=== PATIENT | male | born 1975 | race Caucasian/White ===

== ENCOUNTER 2019-06-17 12:07 | Inpatient (IN) | payer OTHER ==
[~2019-06-17] VITALS: Ht 177.8 cm; Wt 50.8 kg
[~2019-06-17 12:07] MED LIST: PANT40TA2 PO; SUCR1ORA6 PO
--- NOTE | 2019-06-17 12:30 | NUR ---
REQUIREMENTS ENGINEER NOTES 43 YEARS OLD MALE CAME A DIRECT ADMISSION FROM [facility]. HE HAS BEEN EXPERIENCING R ABDOMINAL PAIN FOR THE PAST 2 DAYS. HE DENIES ANY FAMILY HX. OR ALLERGIES. HE IS ON RA. BP: 152/86 HR: 63. HE IS AOX4, DENIES NEURO AND CARDIAC HX. ABDOMEN IS SOFT, HYPOACTIVE BOWEL SOUNDS ON ALL FOUR QUADRANTS, NO BM FOR THE PAST 5 DAYS. SKIN IS INTACT, NO WOUNDS. HE HAS A 20G ON RFA THAT WAS STARTED AT [facility], INFUSING D5 1/2 NS AT 100ML/HR. HE DENIED MRSA SWAB AND NG TUBE INSERTION. DR. HAYWOOD HAS BEEN NOTIFIED OF PATIENTS ARRIVAL. WILL CONTINUE TO MONITOR FOR ANY CHANGES
--- NOTE | 2019-06-17 12:38 | NUR ---
NOTIFIED EPIC DR ONEIL THAT DIRECT ADMIT ARRIVED TO UNIT ROOM 103. ORDERS OBTAINED START PATIENT ON D5 1/2 NS @ 100 ML/HR . REMAIN NPO PLACE NGT TO LOW INTERMITENT SUCTION. DR GRANADO TO CONTACTED BY DR ONEIL
--- NOTE | 2019-06-17 12:58 | NUR ---
PT CAME DIRECT ADMIT FROM [facility]. REFUSING TO HAVE IV PLACED AND REFUSING NGT ASKING FOR PAIN MEDS ONLY
[2019-06-17] MEDS ORDERED: IV D5/0.45 NACL 1,000 ML IV PRN (13:00)
[2019-06-17] MEDS ORDERED: ONDANSETRON HCL/PF 4 MG/2 ML VIAL IVP PRN (15:30)
[2019-06-17] MEDS ORDERED: Z GUARD REMEDY 2 OZ OINT TP PRN (15:30)
--- NOTE | 2019-06-17 15:50 | NUR ---
NEW ORDERS OBTAINED FROM DR ONEIL . PATIENT STILL REFUSING NG TUBE.
[2019-06-17 16:00] VITALS: BP 86/50
[2019-06-17] MEDS: IV 1/2NS 1000 ML 1,000 ML IV PRN (16:04)
[2019-06-17] MEDS: FAMOTIDINE/PF INJ 20 MG/2 ML VIAL IV SCH (16:58)
[2019-06-17] MEDS: ACETAMINOPHEN 325 MG TABLET PO PRN ×2 (16:58→17:05)
--- NOTE | 2019-06-17 17:14 | NUR ---
RN NOTES PATIENT COMPLAINED OF PAIN, 9/10 IN ABDOMEN. HE WAS OFFERED TYLENOL 650 MG, REFUSED. WILL CONTINUE TO MONITOR
[2019-06-17 17:16] LABS: BASOPHILS # (AUTO) 0.1 /CMM (0.0-0.2); BASOPHILS % (AUTO) 1.2 % (0.0-2.0); EOSINOPHILS % (AUTO) 2.2 % (0.0-6.0); HEMATOCRIT 35 % (39-51); HEMOGLOBIN 12.3 g/dL (13.5-17.5); LYMPHOCYTES # (AUTO) 1.6 /CMM (0.8-4.8); LYMPHOCYTES % (AUTO) 30.4 % (20.0-44.0); MEAN CORPUSCULAR HGB CONC 35 g/dl (31.0-36.0); MEAN CORPUSCULAR VOLUME 93 fL (80-96); MONOCYTES # (AUTO) 0.5 /CMM (0.1-1.30); MONOCYTES % (AUTO) 9.6 % (2.0-12.0); NEUTROPHILS % (AUTO) 56.6 % (43.0-81.0); PLATELET COUNT (AUTO) 275 /CMM (150-450); WHITE BLOOD COUNT (AUTO) 5.4 K/uL (4.3-11.0)
[2019-06-17 17:29] LABS: ALBUMIN 2.8 g/dL (3.4-5.0); BILIRUBIN,TOTAL 0.4 mg/dL (0.2-1.0); CALCIUM, SERUM 8.3 mg/dL (8.5-10.1); CREATININE 0.8 mg/dL (0.6-1.3); POTASSIUM 3.9 mmol/L (3.5-5.1); TOTAL PROTEIN, SERUM 5.9 g/dL (6.4-8.2)
--- NOTE | 2019-06-17 19:03 | NUR ---
RN CLOSING NOTES PATIENT IS RESTING BED. HE WAS BROUGHT IN TODAY FROM [facility]. HE IS AOX4 AND ON RA. HE IS NPO. BOWEL SOUNDS ARE HYPOACTIVE ON ALL FOUR QUADRANTS. HE HAS A 20G ON RFA THAT WAS STARTED AT [facility], RUNNING 1/2 NS AT 125 ML/HR. HE REFUSED THE INSERTION OF NG TUBE. HE REPORTED PAIN OF 9/10 IN THE ABDOMEN BUT REFUSED 650 MG TYLENOL. SAFETY MEASURES HAVE BEEN IMPLEMENTED, CALL LIGHT WITHIN REACH, SIDE RAILS UP X2, BED IN LOWEST AND LOCKED POSITION. PATIENT WILL BE ENDORSED TO NIGHTSHIFT NURSE.
--- NOTE | 2019-06-17 19:20 | NUR ---
PATIENT HAS BEEN ENDORSED BY THE NIGHTSWIFT NURSE
[2019-06-17 20:00] VITALS: BP 92/59
[2019-06-18] MEDS: IV 1/2NS 1000 ML 1,000 ML IV PRN ×3 (00:13→22:02)
[2019-06-18 04:00] VITALS: BP 101/60
[2019-06-18 06:16] LABS: ALBUMIN 3.1 g/dL (3.4-5.0); BILIRUBIN,TOTAL 0.6 mg/dL (0.2-1.0); CALCIUM, SERUM 8.8 mg/dL (8.5-10.1); CREATININE 0.8 mg/dL (0.6-1.3); MAGNESIUM 1.9 mg/dL (1.8-2.4); POTASSIUM 4.2 mmol/L (3.5-5.1); TOTAL PROTEIN, SERUM 6.4 g/dL (6.4-8.2)
[2019-06-18 06:31] LABS: BASOPHILS % (AUTO) 0.7 % (0.0-2.0); EOSINOPHILS % (AUTO) 1.7 % (0.0-6.0); HEMATOCRIT 38 % (39-51); HEMOGLOBIN 13.3 g/dL (13.5-17.5); LYMPHOCYTES # (AUTO) 1.9 /CMM (0.8-4.8); LYMPHOCYTES % (AUTO) 32.9 % (20.0-44.0); MEAN CORPUSCULAR HGB CONC 35 g/dl (31.0-36.0); MEAN CORPUSCULAR VOLUME 94 fL (80-96); MONOCYTES # (AUTO) 0.5 /CMM (0.1-1.30); MONOCYTES % (AUTO) 8.8 % (2.0-12.0); NEUTROPHILS # (AUTO) 3.2 /CMM (1.8-8.9); NEUTROPHILS % (AUTO) 55.9 % (43.0-81.0); PLATELET COUNT (AUTO) 278 /CMM (150-450); RED BLOOD CELL COUNT(AUTO) 4.08 MIL/uL (4.5-6.0); WHITE BLOOD COUNT (AUTO) 5.7 K/uL (4.3-11.0)
--- NOTE | 2019-06-18 07:15 | NUR ---
RN OPENING NOTES REPORT RECEIVED FROM AUTOMATIC PINSETTER MECHANIC RN. PT IS ASLEEP AT PRESENT MOMENT WITH EQUAL CHEST RISE AND FALL. NO OBVIOUS SIGNS OF PAIN NOTED AT THIS TIME WILL CONTINUE TO MONITOR. BED IS LOCKED AND IN LOWEST POSITION WITH CALL LIGHT IN REACH.
[2019-06-18 08:00] VITALS: BP 107/69
[2019-06-18] MEDS ORDERED: DIATR MEGLU/DIATRIZOATE SODIUM 120 ML BOTTLE (GASTROGRAPHIN) ONE ×2 (08:42→08:46)
[2019-06-18] MEDS: FAMOTIDINE/PF INJ 20 MG/2 ML VIAL IV SCH ×2 (09:00→16:59)
[2019-06-18] MEDS: MORPHINE SULFATE INJ 2 MG/ML DISP.SYRIN IV PRN ×4 (09:04→20:57)
--- NOTE | 2019-06-18 14:00 | NUR ---
DR. GRANADO MET WITH PATIENT STATED HE REVIEWED PATIENT'S PROCEDURE AND STATED TO START PATIENT ON CLEAR LIQUIDS AND ADVANCE TOLERATED. SBO HAS BEEN RULED OUT.
[2019-06-18 16:00] VITALS: BP 107/69
[2019-06-18 18:00] VITALS: BP 107/67
--- NOTE | 2019-06-18 18:56 | NUR ---
RN CLOSING NOTES PT TOLERATING FEEDING. NO SIGNIFICANT CHANGES DURING THE SHIFT WILL ENDORSE CONTINUITY OF CARE TO [employer]PERATORS SUPERVISOR RN.
--- NOTE | 2019-06-18 19:06 | NUR ---
MS RN RECEIVE PT IN BED A/O X 3, STABLE, RESPIRATIONS EVEN AND UNLABORED, SAFETY MEASURES IN PLACE. WILL CONTINUE TO MONITOR.
[2019-06-18 20:00] VITALS: BP 103/66
[2019-06-19] MEDS: MORPHINE SULFATE INJ 2 MG/ML DISP.SYRIN IV PRN (01:11)
[2019-06-19 04:00] VITALS: BP 110/58
--- NOTE | 2019-06-19 06:11 | NUR ---
MS RN PT SLEPT WELL THROUGHOUT THE NIGHT. NOT IN RESPIRATORY DISTRESS. PAIN MEDICATED WITH PRN PAIN MEDICATION. STABLE. KEPT CLEAN AND DRY AND COMFORTABLE. NEEDS ATTENDED AND ANTICIPATED. NURSING CARE RENDERED, SAFETY MEASURES AT ALL TIMES. ENDORSE TO THE NEXT SHIFT.
[2019-06-19] MEDS: IV 1/2NS 1000 ML 1,000 ML IV PRN (06:23)
[2019-06-19 08:00] VITALS: BP 100/58
[2019-06-19] MEDS: FAMOTIDINE/PF INJ 20 MG/2 ML VIAL IV SCH (09:00)
--- NOTE | 2019-06-19 14:15 | NUR ---
RN D/C NOTE RECEIVED D/C ORDERS TO HOME. PATIENT TOLERATED BREAKFAST AND LUNCH. NO STOMACH PAIN, NAUSEA OR VOMITING NOTED. PATIENT REPORTS PASSING GAS, BOWEL SOUNDS ACTIVE. IV REMOVED, CATHETER INTACT, NO BLEEDING NOTED. NO WOUND PICTURES TO BE TAKEN. HOMELESS WAIVER SIGNED, TAP CARD PROVIDED FOR TRANSPORTATION TO LOCATION OF CHOICE. BELONGINGS CHECKLIST SIGNED. EDUCATION FOR IMPORTANCE OF FOLLOW UP PROVIDED. PATIENT AMBULATED OUT OF UNIT @[id number]
== END 2019-06-19 14:20 | disposition home or self-care (01) | DRG 247 ==
LOC: MEDSG1 12:07
PROVIDERS: ADMIT Internal Medicine; ATTEND Internal Medicine
DX: K56.609 Unspecified intestinal obstruction, unspecified as to partial versus complete obstruction (principal); F11.20 Opioid dependence, uncomplicated; F17.200 Nicotine dependence, unspecified, uncomplicated; Z87.11 Personal history of peptic ulcer disease
CPT/HCPCS: 36415; 74018; 74250-TC; 80053-TC; 80061-TC; 83735-TC; 84100-TC; 85025-TC; 87081-TC; A6403; G0378; J2270; J3490; Q9963

== ENCOUNTER 2019-06-25 09:18 | Emergency (ER) | payer OTHER ==
[~2019-06-25] VITALS: Ht 167.6 cm; Wt 50.3 kg
--- NOTE | 2019-06-25 10:16 | NUR ---
in er bed 12, hooked to monitor, tucked in blabket, easily arousable by verbal stimuli. will continue to monitor.
[2019-06-25 10:17] LABS: BASOPHILS % (AUTO) 0.6 % (0.0-2.0); EOSINOPHILS % (AUTO) 1.2 % (0.0-6.0); HEMATOCRIT 43 % (39-51); HEMOGLOBIN 14.7 g/dL (13.5-17.5); LYMPHOCYTES # (AUTO) 1.7 /CMM (0.8-4.8); LYMPHOCYTES % (AUTO) 21.9 % (20.0-44.0); MEAN CORPUSCULAR HGB CONC 34 g/dl (31.0-36.0); MEAN CORPUSCULAR VOLUME 93 fL (80-96); MONOCYTES # (AUTO) 0.6 /CMM (0.1-1.30); MONOCYTES % (AUTO) 7.9 % (2.0-12.0); NEUTROPHILS # (AUTO) 5.4 /CMM (1.8-8.9); NEUTROPHILS % (AUTO) 68.4 % (43.0-81.0); PLATELET COUNT (AUTO) 333 /CMM (150-450)
[2019-06-25 10:25] LABS: CALCIUM, SERUM 9.3 mg/dL (8.5-10.1); POTASSIUM 3.5 mmol/L (3.5-5.1)
--- NOTE | 2019-06-25 12:26 | NUR ---
Patient given written and verbal discharge instructions. Patient verbalizes understanding of instructions. Patient is ambulatory with steady gait. Refuses offer of care home placement. Patient given list of available shelters in surrounding area. Patient discharged in proper clothing, all belongings returned, nameband removed.
[2019-06-25 12:31] VITALS: BP 110/72
== END 2019-06-25 12:34 | disposition home or self-care (01) ==
LOC: ER 09:21
DX: K64.9 Unspecified hemorrhoids (principal)
CPT/HCPCS: 36415; 74021; 80048-TC; 83690-TC; 85025-TC

== ENCOUNTER 2019-12-02 18:25 | Emergency (ER) | payer OTHER ==
[~2019-12-02] VITALS: Ht 167.6 cm; Wt 56.2 kg
[2019-12-02] MEDS ORDERED: ONDANSETRON HCL/PF 4 MG/2 ML VIAL IVP ONE (19:00)
[2019-12-02] MEDS ORDERED: MORPHINE SULFATE INJ 2 MG/ML DISP.SYRIN IV ONE ×2 (19:00→22:30)
[2019-12-02] MEDS ORDERED: IV NS 0.9% 1,000 ML BAG IV ONE (19:00)
[2019-12-02] MEDS ORDERED: PANTOPRAZOLE 40 MG VIAL IV ONE (19:00)
[2019-12-02] MEDS ORDERED: MORPHINE SULFATE INJ 4 MG/ML DISP.SYRIN ONE ×2 (19:04→22:38)
[2019-12-02] MEDS ORDERED: ONDANSETRON HCL/PF 4 MG/2 ML VIAL ONE (19:05)
[2019-12-02] MEDS ORDERED: PANTOPRAZOLE 40 MG VIAL ONE (19:05)
[2019-12-02 19:15] LABS: BASOPHILS # (AUTO) 0.1 /CMM (0.0-0.2); BASOPHILS % (AUTO) 0.5 % (0.0-2.0); EOSINOPHILS % (AUTO) 0.2 % (0.0-6.0); HEMATOCRIT 51 % (39-51); HEMOGLOBIN 17.1 g/dL (13.5-17.5); LYMPHOCYTES # (AUTO) 1.4 /CMM (0.8-4.8); LYMPHOCYTES % (AUTO) 11.2 % (20.0-44.0); MEAN CORPUSCULAR HGB CONC 34 g/dl (31.0-36.0); MEAN CORPUSCULAR VOLUME 93 fL (80-96); MONOCYTES # (AUTO) 0.9 /CMM (0.1-1.30); NEUTROPHILS # (AUTO) 10.4 /CMM (1.8-8.9); NEUTROPHILS % (AUTO) 81.1 % (43.0-81.0); PLATELET COUNT (AUTO) 210 /CMM (150-450); RED BLOOD CELL COUNT(AUTO) 5.46 MIL/uL (4.5-6.0); WHITE BLOOD COUNT (AUTO) 12.8 K/uL (4.3-11.0)
[2019-12-02 19:24] LABS: CALCIUM, SERUM 9.7 mg/dL (8.5-10.1); CREATININE 0.8 mg/dL (0.6-1.3); POTASSIUM 3.5 mmol/L (3.5-5.1)
[2019-12-02 19:30] LABS: BILIRUBIN,DIRECT 0.1 mg/dL (0.0-0.2); BILIRUBIN,TOTAL 0.5 mg/dL (0.2-1.0); TOTAL PROTEIN, SERUM 8.1 g/dL (6.4-8.2)
--- NOTE | 2019-12-02 19:42 | NUR ---
PT WALKED INTO EMERGENCY ROOM FOR ABDOMINAL DISCONFORT. LABS DRAWN PIV PLACED MEDICATIONS AND FLUID GIVEN WILL CONTINUE TO MONITOR
[2019-12-02] MEDS ORDERED: IOHEXOL-300 100 ML VIAL IV ONE ×2 (19:58→21:02)
[2019-12-02] MEDS ORDERED: IV NS 0.9% 250 ML IV ONE ×2 (19:58→21:03)
[2019-12-02] MEDS ORDERED: CT SWABBABLE VALVE TRANS SET 1 EA INFUS.SET MC ONE ×2 (19:58→21:03)
--- NOTE | 2019-12-03 00:51 | NUR ---
[facility] [address] PISANO
[2019-12-03 02:12] VITALS: BP 121/77
--- NOTE | 2019-12-03 02:19 | NUR ---
REPORT GIVEN TO GEN EDEN AT [facility] [facility] FOR SARITA
[2019-12-03] MEDS ORDERED: MORPHINE SULFATE INJ 2 MG/ML DISP.SYRIN ONE (03:07)
--- NOTE | 2019-12-03 03:22 | NUR ---
[facility] ambulance, vs recored, report given to ambulance staff.
[2019-12-03] MEDS ORDERED: MORPHINE SULFATE INJ 2 MG/ML DISP.SYRIN IV ONE (03:30)
== END 2019-12-03 03:33 | disposition short-term general hospital (02) ==
LOC: ER 18:28
DX: K92.2 Gastrointestinal hemorrhage, unspecified (principal); Z59.0 Homelessness
CPT/HCPCS: 36415; 71260; 74177; 80048; 80076; 80307; 83690; 85025; 85730; 96374; 96375; 96376 ×2; 99285; C9113; J2270 ×3; J2405; J7030; J7050 ×2; Q9967 ×2; G0480